=== PATIENT | female | born 1995 | race Hispanic/Latino ===

== ENCOUNTER 2024-05-22 01:45 | Emergency (ER) | payer BC ==
[2024-05-22] MEDS ORDERED: predniSONE 20 MG TAB ONE (02:06)
[2024-05-22] MEDS ORDERED: diphenhydrAMINE 25 MG CAP ONE (02:06)
== END 2024-05-22 02:12 | disposition home or self-care (01) ==
LOC: CSHERS 01:45
DX: L50.9 Urticaria, unspecified (principal)
CPT/HCPCS: 99282; J7512